=== PATIENT | female | born 2000 | race Caucasian/White ===

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

== ENCOUNTER 2023-02-26 10:09 | Outpatient (CLI) | payer BC, MEDICAID, SELFPAY ==
--- NOTE | 2023-02-26 10:16 | XR_ITS ---
WS: [id number] Exam: XR pelvis min 3V [id number] Date/Time of Exam: 02/26/2023 10:41 AM Reason For Exam: ORTHOPEDIC AFTERCARE Comparison 10/28/2018. Healing fracture of the RIGHT anterior column and superior lateral RIGHT ischium. Fractures appear to be in good alignment. A total of 4 orthopedic screws stabilize a complex fracture of the inferior RI GHT ilium in satisfactory position. Fractures extend into the RIGHT acetabulum. The LEFT pelvis is in tact. Moderate amount retained stool in the rectal sigmoid colon. IMPRESSION: 1. Right-sided pelvic fractures which appear to be healing in satisfactory position as discussed [place]
== END 2023-02-26 10:10 | disposition home or self-care (01) ==
LOC: RAD 10:12
PROVIDERS: Family Provider Nurse Practitioner Family; PCP Nurse Practitioner Family; Visit Provider Orthopaedic Surgery
DX: Z47.89 Encounter for other orthopedic aftercare (principal); S32.82XD Multiple fractures of pelvis without disruption of pelvic ring, subsequent encounter for fracture with routine healing; X58.XXXD Exposure to other specified factors, subsequent encounter
CPT/HCPCS: 72190

== ENCOUNTER 2023-03-13 06:00 | Outpatient (RCR) | payer BC, MEDICAID, SELFPAY | END 2023-03-17 23:59 | disposition home or self-care (01) | LOC: APT 06:00 | PROVIDERS: Visit Provider Orthopaedic Surgery | DX: M25.551 Pain in right hip (principal) | CPT/HCPCS: 97110; 97162 ==

== ENCOUNTER 2023-03-18 06:00 | Outpatient (RCR) | payer BC, MEDICAID, SELFPAY | END 2023-04-17 23:59 | disposition home or self-care (01) | LOC: APT 06:00 | PROVIDERS: Visit Provider Orthopaedic Surgery | DX: M25.551 Pain in right hip (principal) | CPT/HCPCS: 97110; 97530 ==

== ENCOUNTER 2023-05-30 11:08 | Outpatient (CLI) | payer BC, MEDICAID, SELFPAY ==
--- NOTE | 2023-05-30 11:16 | XRR_ITS ---
PROCEDURE INFORMATION: Exam: XR Pelvis Exam date and time: 05/30/2023 11:19 AM Age: 22 years old Clinical indication: Hip pain; Right hip; Prior surgery; Surgery date: 6+ months; Surgery type: RT hip; Additional info: Orthopedic aftercare TECHNIQUE: Imaging protocol: Radiologic exam of the pelvis. Views: 1 or 2 view. COMPARISON: CR XR pelvis min 3V [id number] 02/26/2023 10:40 AM FINDINGS: Bones/joints: Multiple long screws in the right iliac bone are unchanged in appearance. The comminuted fracture involving the right acetabulum, adjacent right superior pubic ramus, and adjacent right ischial bone shows evidence of some interval healing. Transitional elements at the lumbosacral junction. Otherwise, unremarkable. Soft tissues: Unremarkable. XR/XR pelvis 1-2V* [id number] IMPRESSION: 1. No acute findings. 2. Additional details as above.
== END 2023-05-30 11:09 | disposition home or self-care (01) ==
LOC: RAD 11:11
PROVIDERS: PCP Nurse Practitioner Family; Visit Provider Orthopaedic Surgery
DX: Z47.89 Encounter for other orthopedic aftercare (principal)
CPT/HCPCS: 72170

== ENCOUNTER 2023-10-07 12:56 | Outpatient (CLI) | payer BC, MEDICAID, SELFPAY ==
--- NOTE | 2023-10-07 13:01 | XR_ITS ---
WS: [id number] XR pelvis min 3V [id number] REASON FOR EXAM: ORTHOPEDIC AFTERCARE FINDINGS: Long screw fixation of previous comminuted right iliac/anterior column acetabular fracture. Fracture appears healed. Mild deformity of the pelvic inlet with minimal flattening on the right side. The right hip joint appears symmetric to the left hip joint. Sacroiliac joints are normal. The examination is unchanged compared to 05/30/2023. XR/XR pelvis min 3V [id number] IMPRESSION: Stable pelvic fracture.
== END 2023-10-07 12:57 | disposition home or self-care (01) ==
LOC: RAD 12:58
PROVIDERS: PCP Nurse Practitioner Family; Visit Provider Orthopaedic Surgery
DX: Z47.89 Encounter for other orthopedic aftercare (principal); M95.5 Acquired deformity of pelvis
CPT/HCPCS: 72190

== ENCOUNTER → 2024-02-26 15:47 | Outpatient (BNVA) | payer BC, MEDICAID, SELFPAY | PROVIDERS: PCP Nurse Practitioner Family; Visit Provider Nurse Practitioner Women's Health | DX: Z01.419 Encounter for gynecological examination (general) (routine) without abnormal findings | CPT/HCPCS: 88175 ==

== ENCOUNTER 2024-08-25 13:32 | Outpatient (CLI) | payer BC, MEDICAID, SELFPAY ==
--- NOTE | 2024-08-25 13:44 | XRR_ITS ---
PROCEDURE INFORMATION: Exam: XR Pelvis Exam date and time: 08/25/2024 1:49 PM Age: 23 years old Clinical indication: Condition or disease; Other: Orthopedic aftercare TECHNIQUE: Imaging protocol: Radiologic exam of the pelvis. Views: 1 or 2 view. COMPARISON: CR XR pelvis min 3V [id number] 10/07/2023 1:30 PM FINDINGS: Bones/joints: Extensive left pelvic fractures extending into the left acetabulum. These are partially fixed with 4 long screws. Mild sclerosis and deformity of the supra-acetabular right iliac bone. Previous screws on that side have been removed. Soft tissues: Unremarkable. XR/XR pelvis min 3V [id number] IMPRESSION: ORIF of the left hemipelvis.
== END 2024-08-25 13:33 | disposition home or self-care (01) ==
LOC: RAD 13:41
PROVIDERS: PCP Nurse Practitioner Family; Visit Provider Orthopaedic Surgery
DX: Z47.89 Encounter for other orthopedic aftercare (principal); Z98.890 Other specified postprocedural states; S32.9XXA Fracture of unspecified parts of lumbosacral spine and pelvis, initial encounter for closed fracture; X58.XXXA Exposure to other specified factors, initial encounter; M89.8X8 Other specified disorders of bone, other site
CPT/HCPCS: 72190

== ENCOUNTER 2024-11-24 15:04 | Outpatient (CLI) | payer BC, MEDICAID, SELFPAY ==
--- NOTE | 2024-11-24 15:12 | XR_ITS ---
WS: [id number] Pelvis, AP pelvis, 11/24/2024 Clinical Data: ORTHOPEDIC AFTERCARE Comparison: Pelvis, 08/25/2024 Findings: The internal fixation of a left acetabular fracture with several orthopedic screws remains the same. There is irregularity of the proximal left ischio pubic ramus and medial left acetabulum unchanged. There is irregularity of the right ilium superior to the acetabulum which represents healed fracture. The hips are intact. The SI joints and pubic symphysis are normal. XR/XR pelvis 1-2V* [id number] Impression: 1. Stable internal fixation of fracture of left ilium. 2. Old fractures of supra-acetabular right ilium and inferior left ischial pubi c ramus and medial left acetabulum.
== END 2024-11-24 15:05 | disposition home or self-care (01) ==
LOC: RAD 15:08
PROVIDERS: PCP Nurse Practitioner Family; Visit Provider Orthopaedic Surgery
DX: Z47.89 Encounter for other orthopedic aftercare (principal)
CPT/HCPCS: 72170